=== PATIENT | male | born 1990 | race African-American/Black ===

== ENCOUNTER 2018-04-15 08:00 | Day surgery (SDC) | payer OTHER ==
[~2018-04-15] VITALS: Ht 160 cm; Wt 87.6 kg
[2018-04-15] VITALS (9 sets, daily range): BP systolic 106–143; BP diastolic 61–77; PULSE 63–85; TEMP 97.4–97.6
--- NOTE | 2018-04-15 14:00 | NUR ---
Patient returns to room 7 per cart and is drowsy but arouses to verbal stimuli. Scrotal support on and ice bag in place. IV fluids infusing. Friend at side. Temp 98.3 and sats 98% on 2L per nasal cannula. Siderails up x2 and call light in reach.
--- NOTE | 2018-04-15 14:15 | NUR ---
Resting without complaints.
--- NOTE | 2018-04-15 14:30 | NUR ---
Continues to rest without any complaints of pain or nausea. IV fluids infusing and friend at side.
--- NOTE | 2018-04-15 14:45 | NUR ---
Patient is more awake and asking for applesauce. Scrotal support remains on and ice bag in place.
--- NOTE | 2018-04-15 15:15 | NUR ---
Attempted few bites of applesauce and states that he feels slightly nauseated. Has been drinking Sprite. Requested plain toast and given. Scrotal support remains on and ice on the scrotal area.
--- NOTE | 2018-04-15 15:45 | NUR ---
Patient eating few bites of toast. States that he is having some mild nausea.
--- NOTE | 2018-04-15 15:57 | NUR ---
Medicated with Zofran 4mg IV for mild nausea. Allowed to sleep.
--- NOTE | 2018-04-15 16:15 | NUR ---
Resting and states that he is having less nausea and feeling better.
--- NOTE | 2018-04-15 16:30 | NUR ---
Patient assisted up to the bathroom and is able to void. Returns to room. States that he is slightly nauseated. Allowed to rest on cart and IV fluids infusing.
--- NOTE | 2018-04-15 17:00 | NUR ---
IV discontinued and given dismissal instructions. Voices understanding of home cares and follow up as scheduled. Provided office number for questions and concerns. Sent home with box of 4x4 guaze sponges. Scrotal support remains in place and dressing dry.
--- NOTE | 2018-04-15 17:15 | NUR ---
Patient dismissed to home per private vehicle driven by friend and taken to the front door per wheelchair and assisted into vehicle.
== END 2018-04-15 17:15 | disposition home or self-care (01) ==
LOC: SDCO 08:00
DX: K40.30 Unilateral inguinal hernia, with obstruction, without gangrene, not specified as recurrent (principal); N43.3 Hydrocele, unspecified; N50.819 Testicular pain, unspecified; Z79.899 Other long term (current) drug therapy
CPT/HCPCS: J0690; J1100; J1885; J2405; J2704; J3010; J7120